=== PATIENT | male | born 1950 | race Two or more races ===

== ENCOUNTER → 2022-03-16 | Emergency (ER) | payer OTHER ==
[~2022-03-16] VITALS: Ht 182.9 cm; Wt 72.6 kg
[~2022-03-16] MED LIST: APETIGEN L790 MG/15 PO
== END | disposition home or self-care (01) ==
LOC: ER 01:22
DX: R41.0 Disorientation, unspecified (principal); F10.20 Alcohol dependence, uncomplicated